=== PATIENT | male | born 1995 | race Two or more races ===

== ENCOUNTER 2021-11-25 12:06 | Emergency (ER) | payer MEDICAID, SELFPAY ==
[2021-11-25 12:18] VITALS: BP 115/65; PULSE 92; RESP 19; TEMP 36.6; O2SAT 99; BMI 23.9
--- NOTE | 2021-11-25 14:01 | ED.HEATRA ---
HPI - Head Injury General Chief complaint: Head Injury Stated complaint: head injury - work related Time Seen by Provider: 11/25/21 13:06 History of Present Illness HPI Narrative: Patient was at work on his job and slipped on the floor hitting the side of his head against a chair He had no loss of consciousness but did feel dizzy and had a headache and comes here for evaluation, he feels much better now he no longer has headache and does not feel dizzy Review of Systems Review of Systems: Positive for head injury with resolved headache and dizziness Now there is no headache no dizziness no fatigue no fainting no feeling faint no vision changes no nausea or vomiting no numbness weakness or tingling no neck pain no difficulty breathing no difficulty walking no laceration Yes all other systems are reviewed and are negative PMFSH Past Medical History Source: nursing notes reviewed Social History Social History Advance Directives: No Advance Directives Information Provided: No Physical Exam Vital Signs: Vital Signs: Last Vital Signs Temp 98 F 11/25/21 12:18 Pulse 92 11/25/21 12:18 Resp 19 11/25/21 12:18 BP 115/65 11/25/21 12:18 Pulse Ox 99 11/25/21 12:18 BMI result Body Mass Index 23.9 General appearance comfortable relax no acute distress Head is normocephalic atraumatic, no raccoon eyes no Walters signs no hematoma or deformity in palpation of the scalp The ears no hemotympanum Pupils equal round reactive to light extraocular motions are intact Facial bones are nontender Neck is supple nontender Respiratory no distress Extremities full range of motion x4 Neuro exam there are no focal motor or sensory deficits, gait and balance are normal, or interaction both expression and comprehension are normal, motor is 5/5 x4, cranial nerves 2-12 intact as tested, cerebellar exam is normal Course Course Course Narrative: Patient who hit his head at work no loss of consciousness had a brief headache and felt mildly dazed for a short amount of time is now completely asymptomatic no blood thinners, completely normal exam and is discharged Discharge Plan Discharge Clinical Impression: Concussion with loss of consciousness, Contusion of head Patient Disposition: Home, Self-Care Additional Instructions: You hit your head on a chair but there is no sign of any dangerous brain bleed or broken skull As her headache and dizziness are gone it may be all better, but sometimes if symptoms recur it may be signs of concussion which she would follow with the [facility] Return to the ER any time any worse condition or any concerns Referrals: [facility] [Provider Group] - 2 days (Patient hit his head in fall at work and felt dizzy and had headache When seen in ER he felt better but is given the referral in case concussion symptoms surface) Stand Alone Forms: Work/School Release Interventions: ED Discharge Assessment Last Done: 11/25/21 14:31 Discharge Date/Time: 11/25/21 14:32
== END 2021-11-25 14:32 | disposition home or self-care (01) ==
LOC: HO.ED 14:17
PROVIDERS: Emergency Provider Emergency Medicine
DX: S06.0X0A Concussion without loss of consciousness, initial encounter (principal); S00.03XA Contusion of scalp, initial encounter; W01.190A Fall on same level from slipping, tripping and stumbling with subsequent striking against furniture, initial encounter; Y93.89 Activity, other specified; Y92.59 Other trade areas as the place of occurrence of the external cause; Y99.0 Civilian activity done for income or pay
CPT/HCPCS: 99282; 99283

== ENCOUNTER 2021-12-04 22:40 | Emergency (ER) | payer MEDICAID, SELFPAY ==
[2021-12-04 22:44] VITALS: BP 158/66; PULSE 91; RESP 20; TEMP 36.2; O2SAT 99; BMI 24.3
--- NOTE | 2021-12-04 23:00 | ED.MALEGU ---
HPI - Male Genitourinary General Chief complaint: Urogenital-Male Stated complaint: STD? Time Seen by Provider: 12/04/21 22:49 Source: patient Mode of arrival: ambulatory Limitations: no limitations History of Present Illness HPI Narrative: 26-year-old male healthy here with reports that his girlfriend is positive for chlamydia and he would like treatment. He is asymptomatic Related Data Allergies Allergy/AdvReac Type Severity Reaction Status Date / Time No Known Allergies Allergy Verified 12/04/21 22:44 Review of Systems Review of Systems: Yes all other systems are reviewed and are negative Constitutional: Constitutional: Reports no additional constitutional complaints, Denies body ache(s), Denies chills, Denies fever(s), Denies headache(s) and Denies weakness Eyes: Eyes: Reports no additional eye complaints and Denies change in vision ENT: Reports system reviewed and no additional complaints, except as documented, Denies dizziness, Denies headache(s), Denies nasal congestion, Denies nasal discharge and Denies neck pain Cardiovascular: Cardiovascular: Reports no additional cardiovascular complaints, Denies chest pain, Denies leg edema and Denies dyspnea Respiratory: Respiratory: Reports no additional respiratory complaints, Denies cough and Denies dyspnea Gastrointestinal: Gastrointestinal: Reports no additional gastrointestinal complaints, Denies abdominal pain, Denies diarrhea, Denies nausea and Denies vomiting Genitourinary: Genitourinary: Denies penile discharge, Denies testicular pain, Denies urinary hesitancy, Denies urinary incontinence and Denies urinary urgency Musculoskeletal: Musculoskeletal: Reports no additional musculoskeletal complaints, Denies back pain, Denies arthralgias, Denies joint swelling, Denies neck pain, Denies numbness and Denies tingling Integumentary/Breasts: Skin/Breast: Reports system reviewed and no additional complaints, except as docu and Denies rash Neurologic: Reports system reviewed and no additional complaints, except as documented, Denies Abnormal speech present, Denies dizziness, Denies headache(s), Denies numbness, Denies tingling and Denies weakness PMFSH Past Medical History Attestation statement: The following information was validated with the patient. Source: old records reviewed and nursing notes reviewed Social History Social History Advance Directives: No Physical Exam Vital Signs: Vital Signs: Last Vital Signs Temp 97.1 F 12/04/21 22:44 Pulse 91 12/04/21 22:44 Resp 20 12/04/21 22:44 BP 158/66 H 12/04/21 22:44 Pulse Ox 99 12/04/21 22:44 BMI result Body Mass Index 24.3 Const: General: cooperative, healthy appearing, comfortable and no acute distress Orientation/consciousness: patient oriented x3 Limitations: no limitations HENMT: Head: Yes normal to inspection Ears: hearing grossly normal bilaterally General nose exam: Normal external nose present Face and sinus: Yes normal facial exam Mouth: Normal oral and palatal mucosa present Throat: Yes posterior oropharynx normal Eyes: General: appearance normal, both eyes and all related structures Pupils: Equal, round and reactive pupils present Neck: Neck: Yes normal visual inspection Chest: Chest palpation & inspection: normal inspection of the chest Resp: Effort & Inspection: normal respiratory effort Auscultation: clear to auscultation bilaterally Cardio: Rate: regular rate Rhythm: regular rhythm Peripheral pulses: Peripheral pulses 2+ throughout GI: Inspection: Yes normal to inspection Palpation (GI): Soft to palpation and nontender Auscultation: normal bowel sounds : Other: deferred gu exam Back/Spine/Pelvis: Thoracic/Lumbar Spine: thoracic and lumbar spine normal to inspection Skin: General skin exam: no rashes or lesions noted Neuro: General: patient oriented x3, no focal motor deficits and normal sensation to monofilament Cranial nerves: Yes Equal, round and reactive pupils present Cognition (Neuro): normal cognition Speech: No Abnormal speech present Gait exam (Neuro): Normal gait present Motor exam (neuro): 5/5 motor strength present throughout Extrem: General: Yes normal to inspection Course Course Course Narrative: 26-year-old male here seeking testing for STD after finding out that his girlfriend is positive for chlamydia. He is asymptomatic. Will send CTNG testing. Patient treated with ceftriaxone 500 mg IM, will send home with course of doxycycline. Reviewed worrisome signs and symptoms of when to return to the emergency department. Comfortable discharge home MDM - Male Genitourinary Medical Records Attestation: I reviewed the patient's medical records. Lab Data Attestation: I reviewed the patient's lab results. Discharge Plan Discharge Clinical Impression: Concern about STD in male without diagnosis Patient Disposition: Home, Self-Care Instructions: Sexually Transmitted Diseases (ED), Safe Sex Practices (ED) Additional Instructions: You were tested for gonorrhea and chlamydia. We will not have your lab results back for several days. Your treated prophylactically for both STD Use condoms If you are positive please re-test in 1 week at [facility] Referrals: Physician,None [Primary Care Provider] - 1 week (as needed) Interventions: ED Discharge Assessment Last Done: 12/04/21 23:37 Discharge Date/Time: 12/04/21 23:40
[2021-12-04] MEDS: cefTRIAXone sodium 500 MG, Lidocaine HCl 1 % MPF 1 ML IM (23:26)
[2021-12-05 01:29] LABS: CT PCR NOT DETECTED (Not Detect.); NG PCR NOT DETECTED (Not Detect.)
== END 2021-12-04 23:40 | disposition home or self-care (01) ==
PROVIDERS: Emergency Provider Student in an Organized Health Care Education/Training Program
DX: Z20.2 Contact with and (suspected) exposure to infections with a predominantly sexual mode of transmission (principal)
CPT/HCPCS: 87491; 87591; 96372; 99284; J0696

== ENCOUNTER 2022-01-09 10:21 | Emergency (ER) | payer MEDICAID, SELFPAY ==
[2022-01-09 10:23] VITALS: BP 138/41; PULSE 80; RESP 19; TEMP 36.6; O2SAT 99; BMI 24.3
--- NOTE | 2022-01-09 10:36 | ED.ABDPAIN ---
HPI - Abdominal Pain General Chief Complaint: Abdominal Pain Stated Complaint: Abd pain Time Seen by Provider: 01/09/22 10:35 Source: patient Mode of arrival: ambulatory Limitations: no limitations History of Present Illness HPI narrative: Patient is a 26 year old male presenting to the emergency department today with abdominal pain. Patient states that he has left lower quadrant abdominal pain. Patient states that the pain comes and goes and he has had it for months. Patient denies any dizziness, lightheadedness, nausea, vomiting, fever, chills, blurry vision, double vision, loss of vision, chest pain, difficulty breathing, shortness of breath, back pain, night sweats, pain with urination, increased urinary frequency, increased urinary urgency, blood in his urine or stool, syncope or a near syncopal episode, recent trauma or falls, bowel incontinence, bladder incontinence, bowel retention, bladder retention, or any other complaints at this time. Patient states that he often lifts very heavy weights. MD elicited complaint: abdominal pain Pertinent past history: none Onset (ago): month(s) Pain Consistency: intermittent Location: LLQ Severity: mild Pain scale (0-10): 3 Quality: dull Radiation: none Migration to: no migration Exacerbating factors: nothing Relieving factors: nothing Associated symptoms: denies other symptoms Related Data Allergies Allergy/AdvReac Type Severity Reaction Status Date / Time No Known Allergies Allergy Verified 12/04/21 22:44 Review of Systems Constitutional: Reports no additional constitutional complaints, Denies chills, Denies fever(s) and Denies night sweats Eyes: Reports no additional eye complaints, Denies blurry vision, Denies change in vision, Denies diplopia, Denies eye discharge, Denies loss of vision and Denies eye pain Denies dizziness Cardiovascular: Reports no additional cardiovascular complaints, Denies chest pain, Denies lightheadedness, Denies Loss of Consciousness and Denies dyspnea Respiratory: Reports no additional respiratory complaints and Denies dyspnea Gastrointestinal: Reports no additional gastrointestinal complaints, Reports abdominal pain, Denies melena, Denies hematochezia, Denies change in bowel habits and Denies change in stool character Genitourinary: Reports no additional male genitourinary complaints, Denies hematuria, Denies oliguria, Denies difficulty urinating, Denies dysuria, Denies urinary frequency, Denies urinary hesitancy, Denies urinary incontinence and Denies urinary urgency Musculoskeletal: Reports no additional musculoskeletal complaints, Denies numbness and Denies tingling Denies dizziness, Denies loss of vision, Denies numbness and Denies tingling Psychiatric: Reports no additional psychiatric complaints Endocrine: Reports no additional endocrine complaints Hematologic/Lymphatic: Reports no additional hematologic/lymphatic complaints Allergic/Immunologic: Reports no additional allergic/immunologic complaints PMFSH Past Medical History Attestation statement: The following information was validated with the patient. Source: old records reviewed Social History Social History Alcohol intake: current Alcohol intake frequency: a few times a month Patient Tobacco Use Status: Current everyday Tobacco user Use of substances other than those prescribed or required for medical reasons: No Advance Directives: No Advance Directives Information Provided: No Physical Exam ED Vital Signs: Vital Signs - 24 hr 01/09/22 10:23 01/09/22 11:05 Temperature 98 F 98.4 F Pulse Rate 80 72 Respiratory Rate 19 15 Blood Pressure 138/41 L 106/66 Pulse Oximetry 99 99 BMI result Body Mass Index 24.3 Const General: cooperative, no acute distress, alert and awake Nutritional Appearance: well nourished Orientation/consciousness: patient oriented x3 Limitations: no limitations HENMT Head: Yes normal to inspection and Yes atraumatic Ears: hearing grossly normal bilaterally and external ears normal General nose exam: Normal external nose present, no nasal discharge noted and no epistaxis Face and sinus: Yes normal facial exam, No abrasion and No laceration Mouth: Normal oral and palatal mucosa present, no drooling and no muffled voice Eyes General: appearance normal, both eyes and all related structures Periorbital: periorbital findings normal Eyelids: Yes eyelids normal Conjunctivae: conjunctivae normal Pupils: Equal, round and reactive pupils present EOM: EOMs intact bilaterally Neck Neck: Yes normal visual inspection, Yes full ROM and Yes no lymphadenopathy Chest Chest palpation & inspection: normal inspection of the chest Resp Effort & Inspection: normal respiratory effort and able to speak in complete sentences Auscultation: clear to auscultation bilaterally Cardio Rate: regular rate Rhythm: regular rhythm GI Inspection: Yes normal to inspection Palpation (GI): Soft to palpation, not firm, nontender, no guarding and not rigid Neuro General: patient oriented x3 and moves all extremities Cranial nerves: Yes Equal, round and reactive pupils present Cognition (Neuro): normal cognition Motor exam (neuro): 5/5 motor strength present throughout Sensory Exam: Normal double simultaneous stimulation for sensation Coordination: [id number] test normal Extrem General: Yes normal to inspection, Yes full ROM and Yes capillary refill normal Psych Appearance: grossly normal Mental Status: mental status grossly normal Affect: normal affect Attitude: cooperative Thought process: Normal thought process present Thought content: Normal thought content present Insight: Good insight present (Psych) MDM - Abdominal Pain MDM Narrative Medical decision making narrative: Patient is a 26 year old male presenting to the emergency department today with abdominal pain. Patient's physical exam was unremarkable. Patient's blood work was unremarkable. Patient's urine showed no acute process. I explained my physical exam findings as well as all test results to the patient. I answered all questions asked by the patient. I stressed the importance of the patient taking his medication as prescribed. I stressed the importance of the patient following up with his primary care provider. I stressed the importance of the patient returning to the emergency department immediately if his symptoms were to worsen or if he were to develop any dizziness, shortness of breath, difficulty breathing, chest pain, blurry vision, loss of vision, nausea, vomiting, abdominal pain, fever, chills, back pain, or any other complaints. Patient verbalized agreement and understanding with this treatment plan and discharge. Differential Diagnosis Differential diagnosis: Likely abdominal pain Medical Records Attestation: I reviewed the patient's medical records. Lab Data Attestation: I reviewed the patient's lab results. Result diagrams: 01/09/22 11:15 01/09/22 11:15 Labs: Lab Results 01/09/22 01/09/22 01/09/22 Range/Units 11:15 11:15 11:16 WBC 5.7 (4.8-10.8) X10*3/uL RBC 4.89 (4.60-5.80) X10*6/uL Hgb 15.5 (14.0-18.0) g/dl Hct 45.5 (42.0-52.0) % MCV 93.0 (80.0-98.0) fL MCH 31.7 (27.0-33.0) pg MCHC 34.1 (31.0-36.0) g/dl RDW 12.7 (11.0-16.0) % Plt Count 181 (160-400) X10*3/uL MPV 11.6 (9.4-12.4) fL Immature Gran % (Auto) 0.2 (0.0-0.4) % Neut % (Auto) 56.8 (45-73) % Lymph % (Auto) 29.5 (20-40) % [place] % (Auto) 12.6 H (2-11) % Eos % (Auto) 0.5 (0-4) % Baso % (Auto) 0.4 (0-2) % Lymph # (Auto) 1.7 (1.2-4.9) X10*3/uL [place] # (Auto) 0.7 (0.1-1.2) X10*3/uL Eos # (Auto) 0.0 (0.0-0.4) X10*3/uL Baso # (Auto) 0.0 (0.0-0.2) X10*3/uL Abs Immat Gran (auto) 0.01 (0.00-0.03) X10*3/uL Absolute Neuts (auto) 3.2 (2.0-8.3) x10*3/uL Absolute Nucleated RBC 0.000 (0.0-0.012) X10*3/uL Nucleated RBC % (auto) 0.0 (0.0-0.2) /100WBC Sodium 140 (135-145) mmol/L Potassium 4.3 (3.3-5.1) mmol/L Chloride 104 (96-108) mmol/L Carbon Dioxide 27 (22-29) mmol/L Anion Gap 13 (12-20) BUN 19 H (9-16) mg/dL Creatinine 1.27 (0.5-1.4) mg/dL Estim Creat Clear Calc 88.9 Estimated GFR > 60 Fasting Glucose 89 (60-99) mg/dL Calcium 9.8 (8.4-10.2) mg/dL Total Bilirubin 1.1 H (0.0-1.0) mg/dL AST 53 H (5-37) U/L ALT 38 (0-40) U/L Alkaline Phosphatase 54 (39-117) U/L Total Protein 7.5 (6.5-8.0) g/dL Albumin 4.6 (3.5-5.0) g/dL Lipase 34 (8-78) U/L Urine Color YELLOW Urine Appearance CLEAR Urine pH 5.5 (5.0-8.0) Ur Specific [place] >= 1.030 H (1.005-1.025) Urine Protein TRACE (NEG-TRACE) MG/DL Urine Glucose (UA) NEG (NEG) MG/DL Urine Ketones NEG (NEG) MG/DL Urine Blood NEG (NEG) Urine Nitrite NEG (NEG) Ur Leukocyte Esterase NEG (NEG) Discharge Plan Discharge Clinical Impression: Abdominal pain Patient Disposition: Home, Self-Care Instructions: Abdominal Pain (ED) Additional Instructions: Follow up with your primary care provider. Return to the emergency department immediately if your symptoms worsen or if you develop any dizziness, shortness of breath, difficulty breathing, chest pain, blurry vision, loss of vision, nausea, vomiting, abdominal pain, fever, chills, back pain, or any other complaints. Referrals: Physician,None [Primary Care Provider] - 2 days (Follow up with your PCP. ) Stand Alone Forms: Work/School Release Interventions: ED Discharge Assessment Last Done: 01/09/22 12:17 Discharge Date/Time: 01/09/22 12:20 Print Language: Syriac
[2022-01-09 11:05] VITALS: BP 106/66; PULSE 72; RESP 15; TEMP 36.9; O2SAT 99
[2022-01-09 11:21] LABS: MANUAL DIFF FLAG NO
[2022-01-09 11:26] LABS: Appearance Urine CLEAR; Color Urine YELLOW; Glucose Urine UA NEG (NEG); Leukocyte Esterase Urine NEG (NEG); Nitrite Urine NEG (NEG); PH 5.5 (5.0-8.0); Specific Gravity - Urine >= 1.030 (1.005-1.025); Urine Blood NEG (NEG); Urine Ketones NEG (NEG); Urine Protein TRACE MG/DL (NEG-TRACE)
[2022-01-09 11:27] LABS: Basophils Percent Auto 0.4 % (0-2); Eosinophils Percent Auto 0.5 % (0-4); Hematocrit 45.5 % (42.0-52.0); Hemoglobin 15.5 g/dl (14.0-18.0); Imm Gran Abs Auto 0.01 X10*3/uL (0.00-0.03); Imm Gran Pct Auto 0.2 % (0.0-0.4); Lymphocytes Absolute Auto 1.7 X10*3/uL (1.2-4.9); Lymphocytes Percent Auto 29.5 % (20-40); Mean Corpuscular HGB Conc 34.1 g/dl (31.0-36.0); Mean Corpuscular Hemoglobin 31.7 pg (27.0-33.0); Mean Platelet Volume 11.6 fL (9.4-12.4); Monocytes Absolute Auto 0.7 X10*3/uL (0.1-1.2); Monocytes Percent Auto 12.6 % (2-11); Neutrophils Absolute Auto 3.2 x10*3/uL (2.0-8.3); Neutrophils Percent Auto 56.8 % (45-73); Platelet Count 181 X10*3/uL (160-400); Red Blood Count 4.89 X10*6/uL (4.60-5.80); Red Cell Distribution Width 12.7 % (11.0-16.0); White Blood Count 5.7 X10*3/uL (4.8-10.8)
[2022-01-09 11:46] LABS: Alanine Aminotransferase 38 U/L (0-40); Albumin Level 4.6 g/dL (3.5-5.0); Alkaline Phosphatase 54 U/L (39-117); Anion Gap 13 (12-20); Aspartate Amino Transferase 53 U/L (5-37); Bilirubin Total 1.1 mg/dL (0.0-1.0); Blood Urea Nitrogen 19 mg/dL (9-16); Calcium 9.8 mg/dL (8.4-10.2); Carbon Dioxide 27 mmol/L (22-29); Chloride 104 mmol/L (96-108); Creatinine Clr Calc Pharmacy 88.9; Estimated Glomerular Filt Rate > 60; Glucose Fasting 89 mg/dL (60-99); Lipase 34 U/L (8-78); Potassium 4.3 mmol/L (3.3-5.1); Sodium 140 mmol/L (135-145); Total Protein 7.5 g/dL (6.5-8.0)
== END 2022-01-09 12:20 | disposition home or self-care (01) ==
PROVIDERS: Physician Assistant Medical; Emergency Provider Emergency Medicine
DX: R10.32 Left lower quadrant pain (principal); F17.200 Nicotine dependence, unspecified, uncomplicated
CPT/HCPCS: 36415; 80053; 81003; 83690; 85025; 99283; 99284

== ENCOUNTER 2022-02-03 09:05 | Emergency (ER) | payer MEDICAID, SELFPAY ==
--- NOTE | ~2022-02-03 | XR_ITS ---
EXAMINATION: XR CHEST CLINICAL INFORMATION: Chest pain. COMPARISON: None TECHNIQUE: 2 views of the chest were obtained. FINDINGS: No significant abnormality is noted involving the heart, lungs, mediastinum, bony thorax or soft tissues. XR/XR chest 2V IMPRESSION: No acute cardiopulmonary process.
--- NOTE | 2022-02-03 09:09 | ED.GENADULT ---
HPI - General Adult General Chief complaint: Chest Pain <OLGA Porter Last Filed: 02/03/22 11:00> Stated complaint: chest pain <OLGA Porter Last Filed: 02/03/22 11:00> Time Seen by Provider: 02/03/22 09:09 <OLGA Porter Last Filed: 02/03/22 11:00> Source: patient <OLGA Porter Last Filed: 02/03/22 11:00> Mode of arrival: ambulatory <OLGA Porter Last Filed: 02/03/22 11:00> Limitations: no limitations <OLGA Porter Last Filed: 02/03/22 11:00> History of Present Illness HPI narrative: Patient is a 26 year old male presenting to the emergency department today with intermittent chest pain. Patient states that his chest sometimes hurts when he takes a deep breath. Patient states that the pain does not radiate and stays in the center of his chest. Patient states that he has had this pain for 5 months. Patient denies any dizziness, lightheadedness, abdominal pain, nausea, vomiting, fever, chills, blurry vision, double vision, loss of vision, difficulty breathing, shortness of breath, back pain, night sweats, pain with urination, increased urinary frequency, increased urinary urgency, blood in his urine or stool, syncope or a near syncopal episode, recent trauma or falls, bowel incontinence, bladder incontinence, bowel retention, bladder retention, or any other complaints at this time. <OLGA Porter Last Filed: 02/03/22 11:00> Onset (ago): month(s) (5) <OLGA Porter - Last Filed: 02/03/22 11:00> Location: chest <OLGA Porter Last Filed: 02/03/22 11:00> Radiation: non-radiation <OLGA Porter Last Filed: 02/03/22 11:00> Severity: mild <OLGA Porter Last Filed: 02/03/22 11:00> Severity scale (1-10): 3 <OLGA Porter Last Filed: 02/03/22 11:00> Quality: dull <OLGA Porter Last Filed: 02/03/22 11:00> Pain Consistency: intermittent <OLGA Porter - Last Filed: 02/03/22 11:00> Relieving factors: none <OLGA Porter - Last Filed: 02/03/22 11:00> Exacerbating factors: other (deep breath) <OLGA Porter - Last Filed: 02/03/22 11:00> Associated symptoms: denies other symptoms <OLGA Porter - Last Filed: 02/03/22 11:00> Treatments prior to arrival: none <OLGA Porter - Last Filed: 02/03/22 11:00> Related Data Allergies/adverse reactions: Allergies Allergy/AdvReac Type Severity Reaction Status Date / Time No Known Allergies Allergy Verified 12/04/21 22:44 <OLGA Porter - Last Filed: 02/03/22 11:00> Review of Systems Constitutional: Constitutional: Reports no additional constitutional complaints, Denies chills, Denies fever(s) and Denies night sweats <OLGA Porter - Last Filed: 02/03/22 11:00> Eyes: Eyes: Reports no additional eye complaints, Denies blurry vision, Denies change in vision, Denies diplopia, Denies eye discharge, Denies loss of vision and Denies eye pain <OLGA Porter - Last Filed: 02/03/22 11:00> ENT: Denies dizziness <OLGA Porter - Last Filed: 02/03/22 11:00> Cardiovascular: Cardiovascular: Reports no additional cardiovascular complaints, Reports chest pain, Denies lightheadedness, Denies Loss of Consciousness and Denies dyspnea <OLGA Porter - Last Filed: 02/03/22 11:00> Respiratory: Respiratory: Reports no additional respiratory complaints and Denies dyspnea <OLGA Porter - Last Filed: 02/03/22 11:00> Gastrointestinal: Gastrointestinal: Reports no additional gastrointestinal complaints, Denies abdominal pain, Denies melena, Denies hematochezia, Denies change in bowel habits and Denies change in stool character <OLGA Porter - Last Filed: 02/03/22 11:00> Genitourinary: Genitourinary: Reports no additional male genitourinary complaints, Denies hematuria, Denies oliguria, Denies difficulty urinating, Denies dysuria, Denies urinary frequency, Denies urinary hesitancy, Denies urinary incontinence and Denies urinary urgency <OLGA Porter - Last Filed: 02/03/22 11:00> Musculoskeletal: Musculoskeletal: Reports no additional musculoskeletal complaints, Denies numbness and Denies tingling <OLGA Porter - Last Filed: 02/03/22 11:00> Neurologic: Denies dizziness, Denies loss of vision, Denies numbness and Denies tingling <OLGA Porter - Last Filed: 02/03/22 11:00> Psychiatric: Psychiatric: Reports no additional psychiatric complaints <OLGA Porter - Last Filed: 02/03/22 11:00> Endocrine: Endocrine: Reports no additional endocrine complaints <OLGA Porter - Last Filed: 02/03/22 11:00> Hematologic/Lymphatic: Hematologic/Lymphatic: Reports no additional hematologic/lymphatic complaints <OLGA Porter - Last Filed: 02/03/22 11:00> Allergic/Immunologic: Allergic/Immunologic: Reports no additional allergic/immunologic complaints <OLGA Porter - Last Filed: 02/03/22 11:00> [facility] Past Medical History Attestation statement: The following information was validated with the patient. <OLGA Porter - Last Filed: 02/03/22 11:00> Source: old records reviewed <OLGA Porter - Last Filed: 02/03/22 11:00> Social History Social History: Social History Alcohol intake: current Alcohol intake frequency: a few times a month Patient Tobacco Use Status: Current everyday Tobacco user Advance Directives: No Advance Directives Information Provided: No <OLGA Porter - Last Filed: 02/03/22 11:00> Physical Exam ED Vital Signs: Vital Signs - 24 hr 02/03/22 09:15 02/03/22 10:51 Temperature 97.9 F Pulse Rate 76 64 Respiratory Rate 18 18 Blood Pressure 129/57 L 126/67 Pulse Oximetry 99 99 BMI result Body Mass Index 24.3 <OLGA Porter - Last Filed: 02/03/22 11:00> Const General: cooperative, no acute distress, alert and awake <OLGA Porter - Last Filed: 02/03/22 11:00> Nutritional Appearance: well nourished <OLGA Porter - Last Filed: 02/03/22 11:00> Orientation/consciousness: patient oriented x3 <OLGA Porter - Last Filed: 02/03/22 11:00> Limitations: no limitations <OLGA Porter - Last Filed: 02/03/22 11:00> HENMT Head: Yes normal to inspection and Yes atraumatic <OLGA Porter - Last Filed: 02/03/22 11:00> Ears: hearing grossly normal bilaterally and external ears normal <OLGA Porter - Last Filed: 02/03/22 11:00> General nose exam: Normal external nose present, no nasal discharge noted and no epistaxis <OLGA Porter - Last Filed: 02/03/22 11:00> Face and sinus: Yes normal facial exam, No abrasion and No laceration <OLGA Porter - Last Filed: 02/03/22 11:00> Mouth: Normal oral and palatal mucosa present, no drooling and no muffled voice <OLGA Porter - Last Filed: 02/03/22 11:00> Eyes General: appearance normal, both eyes and all related structures <OLGA Porter - Last Filed: 02/03/22 11:00> Periorbital: periorbital findings normal <OLGA Porter - Last Filed: 02/03/22 11:00> Eyelids: Yes eyelids normal <OLGA Porter - Last Filed: 02/03/22 11:00> Conjunctivae: conjunctivae normal <OLGA Porter - Last Filed: 02/03/22 11:00> Pupils: Equal, round and reactive pupils present <OLGA Porter - Last Filed: 02/03/22 11:00> EOM: EOMs intact bilaterally <OLGA Porter - Last Filed: 02/03/22 11:00> Neck Neck: Yes normal visual inspection, Yes full ROM and Yes no lymphadenopathy <Miriam CokerOLGA orlando - Last Filed: 02/03/22 11:00> Chest Chest palpation & inspection: normal inspection of the chest <Miriam CokerOLGA orlando - Last Filed: 02/03/22 11:00> Resp Effort & Inspection: normal respiratory effort and able to speak in complete sentences <Miriam CokerOLGA orlando - Last Filed: 02/03/22 11:00> Auscultation: clear to auscultation bilaterally <Miriam CokerOLGA orlando - Last Filed: 02/03/22 11:00> Cardio Rate: regular rate <Miriam CokerOLGA orlando - Last Filed: 02/03/22 11:00> Rhythm: regular rhythm <Miriam CokerOLGA orlando - Last Filed: 02/03/22 11:00> GI Inspection: Yes normal to inspection <Miriamelena CokerOLGA orlando - Last Filed: 02/03/22 11:00> Neuro General: patient oriented x3 and moves all extremities <Miriam OLGA Flynn - Last Filed: 02/03/22 11:00> Cranial nerves: Yes Equal, round and reactive pupils present <Miriam CokerOLGA orlando - Last Filed: 02/03/22 11:00> Cognition (Neuro): normal cognition <Miriam CokerOLGA orlando - Last Filed: 02/03/22 11:00> Motor exam (neuro): 5/5 motor strength present throughout <Miriam CokerOLGA orlando - Last Filed: 02/03/22 11:00> Sensory Exam: Normal double simultaneous stimulation for sensation <Miriamelena CokerOLGA orlando - Last Filed: 02/03/22 11:00> Coordination: [id number] test normal <Miriamelena CokerOLGA orlando - Last Filed: 02/03/22 11:00> Extrem General: Yes normal to inspection, Yes full ROM and Yes capillary refill normal <Miriam CokerOLGA orlando - Last Filed: 02/03/22 11:00> Psych Appearance: grossly normal <Miriam OLGA Flynn - Last Filed: 02/03/22 11:00> Mental Status: mental status grossly normal <OLGA Porter - Last Filed: 02/03/22 11:00> Affect: normal affect <OLGA Porter - Last Filed: 02/03/22 11:00> Attitude: cooperative <OLGA Porter - Last Filed: 02/03/22 11:00> Thought process: Normal thought process present <OLGA Porter Last Filed: 02/03/22 11:00> Thought content: Normal thought content present <OLGA Porter Last Filed: 02/03/22 11:00> Insight: Good insight present (Psych) <OLGA Porter Last Filed: 02/03/22 11:00> Medical Decision Making MDM Narrative Medical decision making narrative: Patient is a 26 year old male presenting to the emergency department today with intermittent chest pain for 5 months. Patient's physical exam was unremarkable. Patient's blood work was unremarkable. Patient's EKG was unremarkable. Patient's chest x-ray showed no acute process. I explained my physical exam findings as well as all test results to the patient. I answered all questions asked by the patient. Patient did not experience any episodes of chest pain while in the department. I stressed the importance of the patient taking his medication as prescribed. I stressed the importance of the patient following up with his primary care provider. I stressed the importance of the patient returning to the emergency department immediately if his symptoms were to worsen or if he were to develop any dizziness, shortness of breath, difficulty breathing, chest pain, blurry vision, loss of vision, nausea, vomiting, abdominal pain, fever, chills, back pain, or any other complaints. Patient verbalized agreement and understanding with this treatment plan and discharge. <OLGA Porter - Last Filed: 02/03/22 11:00> Differential Diagnosis Differential Diagnosis: chest pain, costochondritis <OLGA Porter - Last Filed: 02/03/22 11:00> Medical Records Medical records reviewed: Yes I reviewed the patient's medical records. <OLGA Porter Last Filed: 02/03/22 11:00> Lab Data Lab results reviewed: Yes I reviewed the patient's lab results. <OLGA Porter Last Filed: 02/03/22 11:00> Result diagrams: : 02/03/22 09:52 02/03/22 09:52 <OLGA Porter - Last Filed: 02/03/22 11:00> Labs: Lab Results 02/03/22 02/03/22 02/03/22 Range/Units 09:52 09:52 09:52 WBC 5.9 (4.8-10.8) X10*3/uL RBC 4.88 (4.60-5.80) X10*6/uL Hgb 15.3 (14.0-18.0) g/dl Hct 45.4 (42.0-52.0) % MCV 93.0 (80.0-98.0) fL MCH 31.4 (27.0-33.0) pg MCHC 33.7 (31.0-36.0) g/dl RDW 12.6 (11.0-16.0) % Plt Count 166 (160-400) X10*3/uL MPV 11.1 (9.4-12.4) fL Immature Gran % (Auto) 0.2 (0.0-0.4) % Neut % (Auto) 49.8 (45-73) % Lymph % (Auto) 37.8 (20-40) % [place] % (Auto) 10.9 (2-11) % Eos % (Auto) 1.0 (0-4) % Baso % (Auto) 0.3 (0-2) % Lymph # (Auto) 2.2 (1.2-4.9) X10*3/uL [place] # (Auto) 0.6 (0.1-1.2) X10*3/uL Eos # (Auto) 0.1 (0.0-0.4) X10*3/uL Baso # (Auto) 0.0 (0.0-0.2) X10*3/uL Abs Immat Gran (auto) 0.01 (0.00-0.03) X10*3/uL Absolute Neuts (auto) 2.9 (2.0-8.3) x10*3/uL Absolute Nucleated RBC 0.000 (0.0-0.012) X10*3/uL Nucleated RBC % (auto) 0.0 (0.0-0.2) /100WBC Sodium 141 (135-145) mmol/L Potassium 4.2 (3.3-5.1) mmol/L Chloride 106 (96-108) mmol/L Carbon Dioxide 30 H (22-29) mmol/L Anion Gap 9 L (12-20) BUN 16 (9-16) mg/dL Creatinine 1.18 (0.5-1.4) mg/dL Estim Creat Clear Calc 95.6 Estimated GFR > 60 Random Glucose 99 (60-115) mg/dL Calcium 9.5 (8.4-10.2) mg/dL Magnesium 1.9 (1.6-2.6) mg/dL Total Bilirubin 0.4 (0.0-1.0) mg/dL AST 25 D (5-37) U/L ALT 24 (0-40) U/L Alkaline Phosphatase 46 (39-117) U/L Troponin I High Sens < 3.5 (<3.5-35.0) ng/L Total Protein 6.9 (6.5-8.0) g/dL Albumin 4.2 (3.5-5.0) g/dL <OLGA Porter - Last Filed: 02/03/22 11:00> Imaging Data Chest x-ray: Attestation: I personally reviewed and interpreted this imaging study as follows: <OLGA Porter - Last Filed: 02/03/22 11:00> My impression: No acute process. <LOGA Porter - Last Filed: 02/03/22 11:00> Radiologist's impression: EXAMINATION: XR CHEST CLINICAL INFORMATION: Chest pain. COMPARISON: None TECHNIQUE: 2 views of the chest were obtained. FINDINGS: No significant abnormality is noted involving the heart, lungs, mediastinum, bony thorax or soft tissues. XR/XR chest 2V IMPRESSION: No acute cardiopulmonary process. Dictated By: Sheldon Smith MD Signed By: Electronically signed by Sheldon Smith MD 02/03/22 0951 <OLGA Porter - Last Filed: 02/03/22 11:00> ECG Data Attestation: I personally reviewed and interpreted this ECG as follows: <OLGA Porter - Last Filed: 02/03/22 11:00> Prior ECG tracings: not available for review <OLGA Porter - Last Filed: 02/03/22 11:00> Interpretation: Vent. Rate: 060 BPM ? ? Atrial Rate: 060 BPM P-R Int: 148 ms? QRS Dur: 094 ms QT Int: 388 ms ? ? ? P-R-T Axes: 053 089 058 degrees QTc Int: 388 ms ? Normal sinus rhythm Normal ECG No previous ECGs available <OLGA Porter - Last Filed: 02/03/22 11:00> Discharge Plan Discharge Clinical Impression: Costochondritis <OLGA Porter - Last Filed: 02/03/22 11:00> Patient Disposition: Home, Self-Care <OLGA Porter - Last Filed: 02/03/22 11:00> Instructions: Costochondritis (ED) <OLGA Porter - Last Filed: 02/03/22 11:00> Additional Instructions: Call if you need to discuss finding and establishing with a primary care provider. Follow up with your primary care provider. Return to the emergency department immediately if your symptoms worsen or if you develop any dizziness, shortness of breath, difficulty breathing, chest pain, blurry vision, loss of vision, nausea, vomiting, abdominal pain, fever, chills, back pain, or any other complaints. <OLGA Porter - Last Filed: 02/03/22 11:00> Referrals: Physician,None [Primary Care Provider] - (Follow up with your PCP. ) <OLGA Porter - Last Filed: 02/03/22 11:00> Stand Alone Forms: Work/School Release <OLGA Porter - Last Filed: 02/03/22 11:00> Interventions: ED Discharge Assessment Last Done: 02/03/22 11:01 <OLGA Porter - Last Filed: 02/03/22 11:00> Discharge Date/Time: 02/03/22 11:02 <OLGA Porter - Last Filed: 02/03/22 11:00> Print Language: Thai <OGLA Porter - Last Filed: 02/03/22 11:00>
[2022-02-03 09:15] VITALS: BP 129/57; PULSE 76; RESP 18; TEMP 36.6; O2SAT 99; BMI 24.3
--- NOTE | 2022-02-03 09:17 | ECG_ITS ---
Test Reason : chest pain Blood Pressure : / mmHG Vent. Rate : 060 BPM Atrial Rate : 060 BPM P-R Int : 148 ms QRS Dur : 094 ms QT Int : 388 ms P-R-T Axes : 053 089 058 degrees QTc Int : 388 ms Normal sinus rhythm Normal ECG No previous ECGs available Referred By: Miriam Flynn Electronically Signed By:SID DENNEY MD
[2022-02-03 09:57] LABS: MANUAL DIFF FLAG NO
[2022-02-03 09:58] LABS: Basophils Percent Auto 0.3 % (0-2); Eosinophils Absolute Auto 0.1 X10*3/uL (0.0-0.4); Hematocrit 45.4 % (42.0-52.0); Hemoglobin 15.3 g/dl (14.0-18.0); Imm Gran Abs Auto 0.01 X10*3/uL (0.00-0.03); Imm Gran Pct Auto 0.2 % (0.0-0.4); Lymphocytes Absolute Auto 2.2 X10*3/uL (1.2-4.9); Lymphocytes Percent Auto 37.8 % (20-40); Mean Corpuscular HGB Conc 33.7 g/dl (31.0-36.0); Mean Corpuscular Hemoglobin 31.4 pg (27.0-33.0); Mean Platelet Volume 11.1 fL (9.4-12.4); Monocytes Absolute Auto 0.6 X10*3/uL (0.1-1.2); Monocytes Percent Auto 10.9 % (2-11); Neutrophils Absolute Auto 2.9 x10*3/uL (2.0-8.3); Neutrophils Percent Auto 49.8 % (45-73); Platelet Count 166 X10*3/uL (160-400); Red Blood Count 4.88 X10*6/uL (4.60-5.80); Red Cell Distribution Width 12.6 % (11.0-16.0); White Blood Count 5.9 X10*3/uL (4.8-10.8)
[2022-02-03 10:25] LABS: Alanine Aminotransferase 24 U/L (0-40); Albumin Level 4.2 g/dL (3.5-5.0); Alkaline Phosphatase 46 U/L (39-117); Anion Gap 9 (12-20); Aspartate Amino Transferase 25 U/L (5-37); Bilirubin Total 0.4 mg/dL (0.0-1.0); Blood Urea Nitrogen 16 mg/dL (9-16); Calcium 9.5 mg/dL (8.4-10.2); Carbon Dioxide 30 mmol/L (22-29); Chloride 106 mmol/L (96-108); Creatinine Clr Calc Pharmacy 95.6; Estimated Glomerular Filt Rate > 60; Glucose Random 99 mg/dL (60-115); Magnesium 1.9 mg/dL (1.6-2.6); Potassium 4.2 mmol/L (3.3-5.1); Sodium 141 mmol/L (135-145); Total Protein 6.9 g/dL (6.5-8.0)
[2022-02-03 10:27] LABS: Troponin-I High Sensitivity < 3.5 ng/L (<3.5-35.0)
[2022-02-03 10:51] VITALS: BP 126/67; PULSE 64; RESP 18; O2SAT 99
== END 2022-02-03 11:02 | disposition home or self-care (01) ==
PROVIDERS: Physician Assistant Medical; Emergency Provider Emergency Medicine
DX: M94.0 Chondrocostal junction syndrome [Tietze] (principal)
CPT/HCPCS: 36415; 71046; 80053; 83735; 84484; 85025; 93005; 99283; 99284

== ENCOUNTER 2022-07-17 02:34 | Emergency (ER) | payer MEDICAID, SELFPAY ==
--- NOTE | 2022-07-17 | ECG_ITS ---
Test Reason : CHEST PAIN Blood Pressure : / mmHG Vent. Rate : 084 BPM Atrial Rate : 084 BPM P-R Int : 146 ms QRS Dur : 094 ms QT Int : 334 ms P-R-T Axes : 075 091 053 degrees QTc Int : 394 ms Normal sinus rhythm Rightward axis Borderline ECG When compared with ECG of 03-FEB-2022 09:23, No significant change was found Referred By: Generic ED Physician Electronically Signed By:VEGA DAMON
[2022-07-17 03:03] VITALS: BP 126/63; PULSE 85; RESP 16; TEMP 36.9; O2SAT 96; BMI 24.3
[2022-07-17 04:14] VITALS: BP 113/77; PULSE 73; RESP 17; TEMP 37.2; O2SAT 99
[2022-07-17 04:24] LABS: MANUAL DIFF FLAG NO
[2022-07-17 04:25] LABS: Basophils Percent Auto 0.5 % (0-2); Eosinophils Absolute Auto 0.1 X10*3/uL (0.0-0.4); Eosinophils Percent Auto 0.9 % (0-4); Hematocrit 44.3 % (42.0-52.0); Hemoglobin 15.5 g/dl (14.0-18.0); Imm Gran Abs Auto 0.02 X10*3/uL (0.00-0.03); Imm Gran Pct Auto 0.3 % (0.0-0.4); Lymphocytes Percent Auto 34.6 % (20-40); Mean Corpuscular Hemoglobin 31.7 pg (27.0-33.0); Mean Corpuscular Volume 90.6 fL (80.0-98.0); Mean Platelet Volume 11.4 fL (9.4-12.4); Monocytes Absolute Auto 0.4 X10*3/uL (0.1-1.2); Monocytes Percent Auto 7.7 % (2-11); Neutrophils Absolute Auto 3.2 x10*3/uL (2.0-8.3); Platelet Count 169 X10*3/uL (160-400); Red Blood Count 4.89 X10*6/uL (4.60-5.80); Red Cell Distribution Width 12.2 % (11.0-16.0); White Blood Count 5.8 X10*3/uL (4.8-10.8)
[2022-07-17 04:44] LABS: Troponin-I High Sensitivity 13.8 ng/L (<3.5-35.0)
[2022-07-17 04:50] LABS: Alanine Aminotransferase 23 U/L (0-40); Albumin Level 4.6 g/dL (3.5-5.0); Alkaline Phosphatase 48 U/L (39-117); Anion Gap 16 (12-20); Aspartate Amino Transferase 26 U/L (5-37); Bilirubin Total 0.3 mg/dL (0.0-1.0); Blood Urea Nitrogen 14 mg/dL (9-16); Calcium 9.4 mg/dL (8.4-10.2); Carbon Dioxide 23 mmol/L (22-29); Chloride 105 mmol/L (96-108); Creatinine Clr Calc Pharmacy 105.5; Estimated Glomerular Filt Rate > 60; Glucose Random 85 mg/dL (60-115); Potassium 4.1 mmol/L (3.3-5.1); Sodium 140 mmol/L (135-145); Total Protein 7.6 g/dL (6.5-8.0)
[2022-07-17 05:11] VITALS: BP 113/77; PULSE 66; RESP 15; O2SAT 99
--- NOTE | 2022-07-17 06:03 | ED.CHESTPAIN ---
HPI - Chest Pain General Chief Complaint: Chest Pain Stated Complaint: Chest pain Time Seen by Provider: 07/17/22 05:41 Source: patient Mode of arrival: ambulatory History of Present Illness HPI narrative: 26-year-old male without significant past medical history and recently moved here from [place] states that for 5 years he has been having intermittent, every 5-6 months, sharp chest pain that occurs while he is working out and last approximately 3 minutes and then subsides. Patient denies that this has been associated with any dizziness, headache, nausea, shortness of breath. Related Data Allergies Allergy/AdvReac Type Severity Reaction Status Date / Time No Known Allergies Allergy Verified 12/04/21 22:44 Review of Systems Review of Systems: Pertinent positives and negatives as stated in HPI 10 point review of systems is otherwise negative. PMFSH Past Medical History Source: nursing notes reviewed Social History Social History Alcohol intake: current Alcohol intake frequency: a few times a month Patient Tobacco Use Status: Current everyday Tobacco user Advance Directives: No Advance Directives Information Provided: Yes Physical Exam Vital Signs: Vital Signs: Last Vital Signs Temp 98.9 F 07/17/22 04:14 Pulse 66 07/17/22 05:11 Resp 15 07/17/22 05:11 BP 113/77 07/17/22 05:11 Pulse Ox 99 07/17/22 05:11 O2 Del Method 07/17/22 05:11 BMI result Body Mass Index 24.3 VITAL SIGNS: Reviewed. GENERAL: Well developed, well nourished, in no acute distress. HEAD: Normocephalic/atraumatic EYES: PERRLA, EOMI EARS: Ext canals without abnormality OROPHARYNX: no oral lesions noted, posterior pharynx clear LUNGS: Normal breath sounds. No adventitious sounds or accessory muscle use. SpO2<99> CARDIOVASCULAR: Regular rate and rhythm without noted murmurs, no JVD or lower extremity edema. ABDOMEN: Soft, non-tender, non-distended with bowel sounds. MUSCULOSKELETAL: No tenderness, deformities, or effusions noted on gross inspection. EXTREMITIES: No cyanosis, clubbing or edema. SKIN: Inspection of the skin reveals no rashes NEUROLOGIC: Alert and oriented x 4. Strength and sensation to light touch were grossly intact x 4. Course Course Course Narrative: 26-year-old male with history and clinical presentation most consistent with costochondritis and lower clinical suspicion for cardiopulmonary etiology. Patient appears otherwise well and in good physical condition. On review of all investigations there are no acute findings other than detectable troponin levels which on serial investigation are flat without acute EKG changes. Patient is no longer having any chest pain at this time and he was strongly encouraged to follow-up with his primary care provider. He was provided with a list of primary care providers in the area. MDM - Chest Pain Lab Data Result diagrams: 07/17/22 04:20 07/17/22 04:20 Labs: Lab Results 07/17/22 07/17/22 07/17/22 Range/Units 04:20 04:20 04:20 WBC 5.8 (4.8-10.8) X10*3/uL RBC 4.89 (4.60-5.80) X10*6/uL Hgb 15.5 (14.0-18.0) g/dl Hct 44.3 (42.0-52.0) % MCV 90.6 (80.0-98.0) fL MCH 31.7 (27.0-33.0) pg MCHC 35.0 (31.0-36.0) g/dl RDW 12.2 (11.0-16.0) % Plt Count 169 (160-400) X10*3/uL MPV 11.4 (9.4-12.4) fL Immature Gran % (Auto) 0.3 (0.0-0.4) % Neut % (Auto) 56.0 (45-73) % Lymph % (Auto) 34.6 (20-40) % [place] % (Auto) 7.7 (2-11) % Eos % (Auto) 0.9 (0-4) % Baso % (Auto) 0.5 (0-2) % Lymph # (Auto) 2.0 (1.2-4.9) X10*3/uL [place] # (Auto) 0.4 (0.1-1.2) X10*3/uL Eos # (Auto) 0.1 (0.0-0.4) X10*3/uL Baso # (Auto) 0.0 (0.0-0.2) X10*3/uL Abs Immat Gran (auto) 0.02 (0.00-0.03) X10*3/uL Absolute Neuts (auto) 3.2 (2.0-8.3) x10*3/uL Absolute Nucleated RBC 0.000 (0.0-0.012) X10*3/uL Nucleated RBC % (auto) 0.0 (0.0-0.2) /100WBC Sodium 140 (135-145) mmol/L Potassium 4.1 (3.3-5.1) mmol/L Chloride 105 (96-108) mmol/L Carbon Dioxide 23 (22-29) mmol/L Anion Gap 16 (12-20) BUN 14 (9-16) mg/dL Creatinine 1.07 (0.5-1.4) mg/dL Estim Creat Clear Calc 105.5 Estimated GFR > 60 Random Glucose 85 (60-115) mg/dL Calcium 9.4 (8.4-10.2) mg/dL Total Bilirubin 0.3 (0.0-1.0) mg/dL AST 26 (5-37) U/L ALT 23 (0-40) U/L Alkaline Phosphatase 48 (39-117) U/L Troponin I High Sens 13.8 D (<3.5-35.0) ng/L Total Protein 7.6 (6.5-8.0) g/dL Albumin 4.6 (3.5-5.0) g/dL 07/17/22 Range/Units 05:48 WBC (4.8-10.8) X10*3/uL RBC (4.60-5.80) X10*6/uL Hgb (14.0-18.0) g/dl Hct (42.0-52.0) % MCV (80.0-98.0) fL MCH (27.0-33.0) pg MCHC (31.0-36.0) g/dl RDW (11.0-16.0) % Plt Count (160-400) X10*3/uL MPV (9.4-12.4) fL Immature Gran % (Auto) (0.0-0.4) % Neut % (Auto) (45-73) % Lymph % (Auto) (20-40) % [place] % (Auto) (2-11) % Eos % (Auto) (0-4) % Baso % (Auto) (0-2) % Lymph # (Auto) (1.2-4.9) X10*3/uL [place] # (Auto) (0.1-1.2) X10*3/uL Eos # (Auto) (0.0-0.4) X10*3/uL Baso # (Auto) (0.0-0.2) X10*3/uL Abs Immat Gran (auto) (0.00-0.03) X10*3/uL Absolute Neuts (auto) (2.0-8.3) x10*3/uL Absolute Nucleated RBC (0.0-0.012) X10*3/uL Nucleated RBC % (auto) (0.0-0.2) /100WBC Sodium (135-145) mmol/L Potassium (3.3-5.1) mmol/L Chloride (96-108) mmol/L Carbon Dioxide (22-29) mmol/L Anion Gap (12-20) BUN (9-16) mg/dL Creatinine (0.5-1.4) mg/dL Estim Creat Clear Calc Estimated GFR Random Glucose (60-115) mg/dL Calcium (8.4-10.2) mg/dL Total Bilirubin (0.0-1.0) mg/dL AST (5-37) U/L ALT (0-40) U/L Alkaline Phosphatase (39-117) U/L Troponin I High Sens 13.6 (<3.5-35.0) ng/L Total Protein (6.5-8.0) g/dL Albumin (3.5-5.0) g/dL ECG Data ECG #1: Attestation: I personally reviewed and interpreted this ECG as follows: Prior ECG tracings: available for review Interpretation: Normal sinus rhythm, HR-84, no STEMI, MO/QRS/QTC is within normal limits. Discharge Plan Discharge Clinical Impression: Atypical chest pain Patient Disposition: Home, Self-Care Instructions: Chest Pain (ED) Additional Instructions: 1. Llame a un proveedor de atenci?n primaria el lunes por la ma?anup para programar thony riya para thony reevaluaci?n y un estudio adicional de gibbons dolor de pecho. Regrese a la melissa de emergencias si los s?ntomas empeoran. Referrals: [place],[facility] [Primary Care Provider] - Print Language: Bahamian
[2022-07-17 06:12] LABS: Troponin-I High Sensitivity 13.6 ng/L (<3.5-35.0)
== END 2022-07-17 06:43 | disposition home or self-care (01) ==
PROVIDERS: Emergency Provider Student in an Organized Health Care Education/Training Program
DX: R07.89 Other chest pain (principal)
CPT/HCPCS: 36415; 80053; 84484; 85025; 93005; 99283; 99284

== ENCOUNTER 2025-07-16 19:37 | Inpatient (IN) | payer MEDICAID, SELFPAY ==
[2025-07-16 19:45] VITALS: BP 135/81; PULSE 82; RESP 19; TEMP 36.8; O2SAT 99
[2025-07-16 20:00] VITALS: BP 135/81; PULSE 82; RESP 19; TEMP 36.8; O2SAT 99; BMI 24.5
[2025-07-16 20:59] LABS: MANUAL DIFF FLAG NO
[2025-07-16 21:06] LABS: Hematocrit 43.0 % (42.0-52.0); Hemoglobin 15.5 g/dl (14.0-18.0); Imm Gran Abs Auto 0.00 X10*3/uL (0.00-0.03); Imm Gran Pct Auto 0.0 % (0.0-0.4); Lymphocytes Absolute Auto 0.9 X10*3/uL (1.2-4.9); Mean Corpuscular HGB Conc 36.0 g/dl (31.0-36.0); Mean Corpuscular Hemoglobin 32.0 pg (27.0-33.0); Mean Corpuscular Volume 88.8 fL (80.0-98.0); NRBC Abs Auto 0.000 X10*3/uL (0.0-0.012); NRBC Pct Auto 0.0 /100WBC (0.0-0.2); Platelet Count 133 X10*3/uL (160-400); Red Blood Count 4.84 X10*6/uL (4.60-5.80); White Blood Count 3.9 X10*3/uL (4.8-10.8)
[2025-07-16 21:13] LABS: Cannabinoid Screen Urine Not Detected (Not Detect)
[2025-07-16 21:15] LABS: Alanine Aminotransferase 17 U/L (0-40); Albumin Level 4.6 g/dL (3.5-5.0); Alkaline Phosphatase 52 U/L (39-117); Anion Gap 12 (12-20); Aspartate Amino Transferase 25 U/L (5-37); Blood Urea Nitrogen 18 mg/dL (9-16); Calcium 9.5 mg/dL (8.4-10.2); Carbon Dioxide 27 mmol/L (22-29); Chloride 106 mmol/L (96-108); Creatinine Clr Calc Pharmacy 89.4; Estimated Glomerular Filt Rate > 60; Potassium 4.1 mmol/L (3.3-5.1); Sodium 141 mmol/L (135-145); Total Protein 7.2 g/dL (6.5-8.0)
--- OUTSIDE RECORDS SUMMARY | 2025-07-16 21:39 | XMS_ITS | Encounter Summary ---
Author Organization [employer] [facility] Address [address] [facility] [address] [place] [address] Care Team Providers Care Plant Care Worker Name Role Phone Lydia Tello MD Primary Care Provider [phone]- [phone] Encounter Details Date Type Department Care Team (Late st Contact Info) Description 07/16/2025 Orders Only GENERIC EXTERNAL DATA DEPARTMENT Provider, Generic External Data Social History Tobacco Use Types Packs/Day Years Used Date Smoking Tobacco: Never Passive Smoke Exposure: Never Smokeless Tobacco: Never Sex and Gender Information Value Date Recorded Sex Assigned at Male 08/16/2022 10:39 AM EDT Legal Sex Male 10:39 AM EDT Gender Identity Choose not to disclose 10:39 AM EDT Sexual Orientation Choose not to disclose 2021 10:39 AM EDT documented as of this encounter Plan of Treatment Upcoming Encounters Date Type Department Care Team (Late st Contact Info) Description 08/09/2025 9:30 AM EDT Office Visit [facility] [address], [place] [phone] Lydia Tello MD [address], [place] [phone] documented as of this encounter Procedures Procedure Name Priority Date/Time Associated Diagnosis Comments ETHANOL Routine 07/16/2025 8:51 PM EDT DRUG MONITOR, PANEL 1, SCREEN, URINE Routine 07/16/2025 8:51 PM EDT CBC WITH AUTO DIFFERENTIAL Routine 07/16/2025 8:51 PM EDT COMPREHENSIVE METABOLIC PANEL Routine 07/16/2025 8:51 PM EDT documented in this encounter Results * Ethanol (07/16/2025 8:51 PM EDT) ETHANOL (MG/DL) IN SER/PLAS <10 mg/dL [facility] Comment:Serum/plasma ethanol results are to be used formedical/treatment purposes only. 07/16/2025 8:51 PM EDT 07/16/2025 8:57 PM EDT us Generic External Data Provider LAB BLOOD ORDERAB LES Final Result [facility] [address] [place], [place] [phone] * (ABNORMAL) Comprehensive Metabolic Panel (07/16/2025 8:51 PM EDT) Sodium 141 135 - 145 mmol/L [facility] Potassium 4.1 3.3 - 5.1 mmol/L [facility] Chloride 106 96 - 108 mmol/L [facility] Carbon Dioxide 27 22 - 29 mmol/L [facility] Anion Gap 12 12 - 20 [facility] Urea Nitrogen (BUN) 18(H) 9 - 16 mg/dL [facility] Creatinine, Serum 1.23 0.5 - 1.4 mg/dL [facility] Creatinine Clr Calc Pharmacy 89.4 [facility] Comment:eGFR (calculated fro m the MDRD study equation) and eCrCl(calculated from the Cockcroft-Gault equation) are based ondifferent parameters and may not yield comparable results.If eCrCl result is absurd, please check patient'sheight/weight. Estimated Glomerular Filt Rate >60 [facility] Comment:Chronic Kidney Disea se: Estimated GFR < 60 mL/min/[id number] Kidney Disease: Estimated GFR < 15 mL/min/1.73m2 Glucose 96 60 - 115 mg/dL [facility] Calcium 9.5 8.4 - 10.2 mg/dL [facility] Bilirubin, Total 0.9 0.0 - 1.0 mg/dL [facility] Aspartate Amino Transferase 25 5 - 37 U/L [facility] Alanine Aminotransferase 17 0 - 40 U/L [facility] Total Protein 7.2 6.5 - 8.0 g/dL [facility] Albumin Level 4.6 3.5 - 5.0 g/dL [facility] Alkaline Phosphatase 52 39 - 117 U/L [facility] 07/16/2025 8:51 PM EDT 07/16/2025 8:57 PM EDT us Generic External Data Provider LAB BLOOD ORDERAB LES Final Result [facility] [address] [place] [address] [phone] * Drug Monitoring, Panel 1, Screen, Urine (07/16/2025 8:51 PM EDT) Opiate Screen Urine Not Detected Not Detect [facility] Comment:Opiate cut-off is 30 0 ng/mL.Positive results are unconfirmed and should not be used fornon-medical purposes. Barbiturates, Urine Not Detected Not Detect [facility] Comment:Barbiturate cut-off is 200 ng/mL.Positive results are unconfirmed and should not be used fornon-medical purposes. Phencyclidine Screen Urine Not Detected Not Detect [facility] Comment:Phencyclidine cut-of f is 25 ng/mL.Positive results are unconfirmed and should not be used fornon-medical purposes. Amphetamine Screen Urine Not Detected Not Detect [facility] Comment:Amphetamine cut-off is 1000 ng/mL.Positive results are unconfirmed and should not be used fornon-medical purposes. Benzodiazepines Screen Urine Not Detected Not Detect [facility] Comment:Benzodiazepine cut-o ff is 200 ng/mL.Positive results are unconfirmed and should not be used fornon-medical purposes. Cocaine Screen Urine Not Detected Not Detect [facility] Comment:Cocaine cut-off is 3 00 ng/mL.Positive results are unconfirmed and should not be used fornon-medical purposes. Cannabinoid Screen Urine Not Detected Not Detect [facility] Comment:Cannabinoid cut-off is 50 ng/mL.Positive results are unconfirmed and should not be used fornon-medical purposes. Methadone Screen, Urine Not Detected Not Detect ng/mL [facility] Comment:Methadone cut-off is 300 ng/mL.Positive results are unconfirmed and should not be used fornon-medical purposes. FENTANYL URINE Not Detected Not Detect [facility] Comment:Fentanyl cut-off is 1 ng/mL.Positive results are unconfirmed and should not be used fornon-medical purposes. Oxycodone Urine Screen Not Detected Not Detect ng/mL [facility] Comment:Oxycodone cut-off is 100 ng/mL.Positive results are unconfirmed and should not be used fornon-medical purposes. Buprenorphine Screen Not Detected Not Detect ng/mL [facility] Comment:Buprenorphine cut-of f is 5 ng/mL.Positive results are unconfirmed and should not be used fornon-medical purposes. 07/16/2025 8:51 PM EDT 07/16/2025 8:57 PM EDT us Generic External Data Provider LAB URINE ORDERAB LES Final Result [facility] [address] [place] [phone] * (ABNORMAL) CBC auto differential (07/16/2025 8:51 PM EDT) White Blood Count 3.9(L) 4.8 - 10.8 X10*3/uL [facility] Red Blood Count 4.84 4.60 - 5.80 X10*6/uL [facility] Hemoglobin 15.5 14.0 - 18.0 g/dl [facility] Hematocrit 43.0 42.0 - 52.0 % [facility] Mean Corpuscular Volume 88.8 80.0 - 98.0 fL [facility] Mean Corpuscular Hemoglobin 32.0 27.0 - 33.0 pg [facility] Mean Corpuscular HGB Conc 36.0 31.0 - 36.0 g/dl [facility] Red Cell Distribution Width 12.1 11.0 - 16.0 % [facility] Platelet Count 133(L) 160 - 400 X10*3/uL [facility] Mean Platelet Volume 11.8 9.4 - 12.4 fL [facility] Neutrophils Percent Auto 65.3 45 - 73 % [facility] Imm Gran Pct Auto 0.0 0.0 - 0.4 % [facility] Lymphocytes Percent Auto 23.1 20 - 40 % [facility] Monocytes Percent Auto 10.8 2 - 11 % [facility] Eosinophils Percent Auto 0.5 0 - 4 % [facility] Basophils Percent Auto 0.3 0 - 2 % [facility] NRBC Pct Auto 0.0 0.0 - 0.2 /100WBC [facility] Neutrophils Absolute Auto 2.5 2.0 - 8.3 x10*3/uL [facility] Imm Gran Abs Auto 0.00 0.00 - 0.03 X10*3/uL [facility] Lymphocytes Absolute Auto 0.9(L) 1.2 - 4.9 X10*3/uL [facility] Monocytes Absolute Auto 0.4 0.1 - 1.2 X10*3/uL [facility] Eosinophils Absolute Auto 0.0 0.0 - 0.4 X10*3/uL [facility] Basophils Absolute Auto 0.0 0.0 - 0.2 X10*3/uL [facility] NRBC Abs Auto 0.000 0.0 - 0.012 X10*3/uL [facility] 07/16/2025 8:51 PM EDT 07/16/2025 8:57 PM EDT us Generic External Data Provider LAB BLOOD ORDERAB LES Final Result [facility] [address] [place] [phone] documented in this encounter Visit Diagnoses Not on filedocumented in this encounter Care Teams Plant Care Worker Relationship Specialty Start Date End Date Lydia Tello MD [address] [place] [address] PCP - General Family Medicine 07/04/25 documented as of this encounter
--- OUTSIDE RECORDS SUMMARY | 2025-07-16 21:39 | XMS_ITS | Clinical Summary ---
Author Organization [employer] Address [address] [facility] [facility] [address] [place] [address] Care Team Providers Care Fresh Food Manager Name Role Phone Lydia Tello MD Primary Care Provider [phone]- [phone] Allergies No known active allergies Medications ibuprofen 800 MG tabletIndicatio ns:Trapezius muscle strain, right, initial encounter Take 1 tablet (800 mg) by mouth every 8 (eight) hours if needed for moderate pain or fever. 30 tablet 5 08/03/20 25 Active Lidocaine 5 % creamIndication s:Trapezius muscle strain, right, initial encounter Apply topically bid 30 g 3 5 Active cyclobenzaprine (Flexeril) 10 MG tabletIndicatio ns:Trapezius muscle strain, right, initial encounter One tab po at bedtime prn pain of muscles, do not drive with medicaion 30 tablet 5 Active Active Problems Problem Noted Date Diagnosed Date Other specified health status 07/04/2025 Overview (07/04/2025): -next comprehensive annual evaluation due after -eye care facilitated by -dental home is -[facility]alo care proxy Encounters Date Type Department Care Team Description 07/16/2025 Orders Only GENERIC EXTERNAL DATA DEPARTMENT Provider, Generic External Data 07/04/2025 3:20 PM EDT Office Visit [facility] [address] [place] [address] Lydia Tello MD Trapezius muscle strain, right, initial encounter (Primary Dx); Routine screening for STI (sexually transmitted infection); Screening cholesterol level; Activity involving physical training 07/04/2025 Travel from Last 3 Months Family History Medical History Relation Name Comments Cancer Neg Hx Diabetes Neg Hx Heart disease Neg Hx Social History Tobacco Use Types Packs/Day Years Used Date Smoking Tobacco: Never Passive Smoke Exposure: Never Smokeless Tobacco: Never Tobacco Cessation:Counseling Given: Not Answered Sex and Gender Information Value Date Recorded Sex Assigned at Male 08/16/2022 10:39 AM EDT Legal Sex Male 10:39 AM EDT Gender Identity Choose not to disclose 10:39 AM EDT Sexual Orientation Choose not to disclose 2021 10:39 AM EDT Last Filed Vital Signs Vital Sign Reading Time Taken Comments Blood Pressure 132/61 07/04/2025 2:12 PM EDT Pulse 85 07/04/2025 2:12 PM EDT Temperature 36.7 C (98.1 F) 07/04/2025 2:12 PM EDT Respiratory Rate 16 07/04/2025 2:12 PM EDT Oxygen Saturation 100% 07/04/2025 2:12 PM EDT Inhaled Oxygen Concentration - - Weight 70.3 kg (155 lb) 07/04/2025 2:12 PM EDT Height 175.3 cm (5' 9 ) 07/04/2025 2:12 PM EDT Body Mass Index 22.89 07/04/2025 2:12 PM EDT Plan of Treatment Upcoming Encounters Date Type Department Care Team (Late st Contact Info) Description 08/09/2025 9:30 AM EDT Office Visit [facility] [address] [place] [address] Lydia Tello MD [address] [place] [address] Health Maintenance Due Date Last Done Comments Depression Screening 1996 HIV Screening 1996 SDOH Screening 1996 Disability Screening 1996 Alcohol/Substance Use Screening 2008 HPV Vaccines (1 - 3-dose series) 2011 Hepatitis C Screening 2014 DTaP/Tdap/Td Vaccines (1 - Tdap) 2015 Hepatitis B Vaccines (1 of 3 - 19+ 3-dose series) 2015 COVID-19 Vaccine (3 - 2024-2 6 season) 2025 04/07/2023, 11/11/2021 Influenza Vaccine (#1) 2025 Family Planning (PISQ) 07/04/2026 07/04/2025 Tobacco Screening 07/04/2026 07/04/2025 Zoster Vaccines (1 of 2) 2046 RSV Patients and Patients Aged 60 years or older (1 - 1-dose 75+ series) 2071 HIB Vaccines Aged Out No longer eligi ble based on patient's age to complete this topic Hepatitis A Vaccines Aged Out No long er eligible based on patient's age to complete this topic IPV Vaccines Aged Out No longer eligi ble based on patient's age to complete this topic Meningococcal B Vaccine Aged Out No l onger eligible based on patient's age to complete this topic Meningococcal Vaccine Aged Out No gopal kolton eligible based on patient's age to complete this topic Pneumococcal Vaccine: Pediatrics (0 to 5 Years) and At-Risk Patients (6 to 49) Years Aged Out No longer eligible b ased on patient's age to complete this topic RSV under 20 months Aged Out No longe r eligible based on patient's age to complete this topic Rotavirus Vaccines Aged Out No longer eligible based on patient's age to complete this topic Procedures Procedure Name Priority Date/Time Associated Diagnosis Comments ETHANOL Routine 07/16/2025 8:51 PM EDT COMPREHENSIVE METABOLIC PANEL Routine 07/16/2025 8:51 PM EDT DRUG MONITOR, PANEL 1, SCREEN, URINE Routine 07/16/2025 8:51 PM EDT CBC WITH AUTO DIFFERENTIAL Routine 07/16/2025 8:51 PM EDT from Last 3 Months Results * Ethanol (07/16/2025 8:51 PM EDT) ETHANOL (MG/DL) IN SER/PLAS <10 mg/dL [facility] Comment:Serum/plasma ethanol results are to be used formedical/treatment purposes only. 07/16/2025 8:51 PM EDT 07/16/2025 8:57 PM EDT us Generic External Data Provider LAB BLOOD ORDERAB LES Final Result [facility] [address] [place] [address] [phone] * Drug Monitoring, Panel 1, Screen, Urine (07/16/2025 8:51 PM EDT) Opiate Screen Urine Not Detected Not Detect [facility] Comment:Opiate cut-off is 30 0 ng/mL.Positive results are unconfirmed and should not be used fornon-medical purposes. Barbiturates, Urine Not Detected Not Detect [facility] Comment:Barbiturate cut-off is 200 ng/mL.Positive results are unconfirmed and should not be used fornon-medical purposes. Phencyclidine Screen Urine Not Detected Not Detect [facility] Comment:Phencyclidine cut-of f is 25 ng/mL.Positive results are unconfirmed and should not be used fornon-medical purposes. Amphetamine Screen Urine Not Detected Not Detect [facility] Comment:Amphetamine cut-off is 1000 ng/mL.Positive results are unconfirmed and should not be used fornon-medical purposes. Benzodiazepines Screen Urine Not Detected Not Detect [facility] Comment:Benzodiazepine cut-o ff is 200 ng/mL.Positive results are unconfirmed and should not be used fornon-medical purposes. Cocaine Screen Urine Not Detected Not Detect [facility] Comment:Cocaine cut-off is 3 00 ng/mL.Positive results are unconfirmed and should not be used fornon-medical purposes. Cannabinoid Screen Urine Not Detected Not Detect [facility] Comment:Cannabinoid cut-off is 50 ng/mL.Positive results are unconfirmed and should not be used fornon-medical purposes. Methadone Screen, Urine Not Detected Not Detect ng/mL [facility] Comment:Methadone cut-off is 300 ng/mL.Positive results are unconfirmed and should not be used fornon-medical purposes. FENTANYL URINE Not Detected Not Detect [facility] Comment:Fentanyl cut-off is 1 ng/mL.Positive results are unconfirmed and should not be used fornon-medical purposes. Oxycodone Urine Screen Not Detected Not Detect ng/mL [facility] Comment:Oxycodone cut-off is 100 ng/mL.Positive results are unconfirmed and should not be used fornon-medical purposes. Buprenorphine Screen Not Detected Not Detect ng/mL [facility] Comment:Buprenorphine cut-of f is 5 ng/mL.Positive results are unconfirmed and should not be used fornon-medical purposes. 07/16/2025 8:51 PM EDT 07/16/2025 8:57 PM EDT us Generic External Data Provider LAB URINE ORDERAB LES Final Result [facility] [address] [place] [phone] * (ABNORMAL) CBC auto differential (07/16/2025 8:51 PM EDT) White Blood Count 3.9(L) 4.8 - 10.8 X10*3/uL [facility] Red Blood Count 4.84 4.60 - 5.80 X10*6/uL [facility] Hemoglobin 15.5 14.0 - 18.0 g/dl [facility] Hematocrit 43.0 42.0 - 52.0 % [facility] Mean Corpuscular Volume 88.8 80.0 - 98.0 fL [facility] Mean Corpuscular Hemoglobin 32.0 27.0 - 33.0 pg [facility] Mean Corpuscular HGB Conc 36.0 31.0 - 36.0 g/dl [facility] Red Cell Distribution Width 12.1 11.0 - 16.0 % [facility] Platelet Count 133(L) 160 - 400 X10*3/uL [facility] Mean Platelet Volume 11.8 9.4 - 12.4 fL [facility] Neutrophils Percent Auto 65.3 45 - 73 % [facility] Imm Gran Pct Auto 0.0 0.0 - 0.4 % [facility] Lymphocytes Percent Auto 23.1 20 - 40 % [facility] Monocytes Percent Auto 10.8 2 - 11 % [facility] Eosinophils Percent Auto 0.5 0 - 4 % [facility] Basophils Percent Auto 0.3 0 - 2 % [facility] NRBC Pct Auto 0.0 0.0 - 0.2 /100WBC [facility] Neutrophils Absolute Auto 2.5 2.0 - 8.3 x10*3/uL [facility] Imm Gran Abs Auto 0.00 0.00 - 0.03 X10*3/uL [facility] Lymphocytes Absolute Auto 0.9(L) 1.2 - 4.9 X10*3/uL [facility] Monocytes Absolute Auto 0.4 0.1 - 1.2 X10*3/uL [facility] Eosinophils Absolute Auto 0.0 0.0 - 0.4 X10*3/uL [facility] Basophils Absolute Auto 0.0 0.0 - 0.2 X10*3/uL [facility] NRBC Abs Auto 0.000 0.0 - 0.012 X10*3/uL [facility] 07/16/2025 8:51 PM EDT 07/16/2025 8:57 PM EDT us Generic External Data Provider LAB BLOOD ORDERAB LES Final Result [facility] [address] [place] [phone] * (ABNORMAL) Comprehensive Metabolic Panel (07/16/2025 8:51 PM EDT) Sodium 141 135 - 145 mmol/L [facility] Potassium 4.1 3.3 - 5.1 mmol/L [facility] Chloride 106 96 - 108 mmol/L [facility] Carbon Dioxide 27 22 - 29 mmol/L [facility] Anion Gap 12 12 - 20 [facility] Urea Nitrogen (BUN) 18(H) 9 - 16 mg/dL [facility] Creatinine, Serum 1.23 0.5 - 1.4 mg/dL [facility] Creatinine Clr Calc Pharmacy 89.4 [facility] Comment:eGFR (calculated fro m the MDRD study equation) and eCrCl(calculated from the Cockcroft-Gault equation) are based ondifferent parameters and may not yield comparable results.If eCrCl result is absurd, please check patient'sheight/weight. Estimated Glomerular Filt Rate >60 [facility] Comment:Chronic Kidney Disea se: Estimated GFR < 60 mL/min/[id number] Kidney Disease: Estimated GFR < 15 mL/min/1.73m2 Glucose 96 60 - 115 mg/dL [facility] Calcium 9.5 8.4 - 10.2 mg/dL [facility] Bilirubin, Total 0.9 0.0 - 1.0 mg/dL [facility] Aspartate Amino Transferase 25 5 - 37 U/L [facility] Alanine Aminotransferase 17 0 - 40 U/L [facility] Total Protein 7.2 6.5 - 8.0 g/dL [facility] Albumin Level 4.6 3.5 - 5.0 g/dL [facility] Alkaline Phosphatase 52 39 - 117 U/L [facility] 07/16/2025 8:51 PM EDT 07/16/2025 8:57 PM EDT us Generic External Data Provider LAB BLOOD ORDERAB LES Final Result Performing Organization Address City/State/[facility] Co de Phone Number [facility] [address] [place] [phone] from Last 3 Months Insurance [employer] [facility] Care Teams Fresh Food Manager Relationship Specialty Start Date End Date Bergen, MD Lydia [address] [place] [phone] PCP - General Family Medicine 07/04/25
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
[2025-07-17 06:27] VITALS: BP 112/60; PULSE 55; RESP 16; TEMP 36.3; O2SAT 100
--- NOTE | 2025-07-17 08:14 | ECG_ITS ---
Test Reason : PISD Blood Pressure : */* mmHG Vent. Rate : 57 BPM Atrial Rate : 57 BPM P-R Int : 150 ms QRS Dur : 94 ms QT Int : 408 ms P-R-T Axes : 46 89 57 degrees QTcB Int : [address] elevation, consider early repolarization Borderline ECG When compared with ECG of 17-Jul-2022 02:39, No significant change was found Referred By: Erickson Worthington Electronically Signed By: HERNAN GALDAMEZ
--- NOTE | 2025-07-17 08:26 | PC.NURSE ---
Assumed care, report received. Pt is currently sleeping, he is brought breakfast. safety is maintained.
[2025-07-17 12:23] LABS: Appearance Urine Cloudy; Glucose Urine UA Negative (Negative); PH 6.0 (5.0-9.0); Specific Gravity - Urine >= 1.030 (1.005-1.025); UMIC TRIGGER UA YES
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
[2025-07-17 18:44] VITALS: BP 133/69; PULSE 88; RESP 16; TEMP 36.4; O2SAT 99; BMI 24.7
[2025-07-18 08:00] VITALS: BP 125/68; PULSE 78; RESP 18; TEMP 37; O2SAT 96
[2025-07-18 08:28] LABS: Hemoglobin A1C 133.0588 umol/L; Total Hemoglobin (HGBA1C) 4056.9316 umol/L
[2025-07-18 08:33] LABS: Alanine Aminotransferase 18 U/L (0-40); Albumin Level 5.0 g/dL (3.5-5.0); Alkaline Phosphatase 53 U/L (39-117); Anion Gap 12 (12-20); Aspartate Amino Transferase 23 U/L (5-37); Blood Urea Nitrogen 19 mg/dL (9-16); Calcium 10.0 mg/dL (8.4-10.2); Carbon Dioxide 29 mmol/L (22-29); Chloride 104 mmol/L (96-108); Cholesterol 219 mg/dL (<200); Creatinine Clr Calc Pharmacy 91.6; Estimated Glomerular Filt Rate > 60; HDL Cholesterol 40 mg/dL (>40); Magnesium 1.9 mg/dL (1.6-2.6); Potassium 4.0 mmol/L (3.3-5.1); Sodium 141 mmol/L (135-145); Total Protein 7.7 g/dL (6.5-8.0); Triglycerides 54 mg/dL (<150)
[2025-07-18 08:48] LABS: Free T4 (Free Thyroxine) 1.16 ng/dL (0.71-1.85); Thyroid Stimulating Hormone 1.96 uIU/mL (0.32-4.0)
[2025-07-18 09:04] LABS: Folate 10.6 ng/mL (> or = 4.0); Vitamin B12 482 pg/mL (200-900)
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
[2025-07-18 20:00] VITALS: BP 128/75; PULSE 78; RESP 18; TEMP 36.6; O2SAT 98
[2025-07-18 21:58] VITALS: BP 128/75
[2025-07-19 07:58] VITALS: BP 103/56; PULSE 67; TEMP 36.5; O2SAT 97
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
[2025-07-19 20:00] VITALS: BP 125/70; PULSE 73; RESP 16; TEMP 36.4; O2SAT 97
[2025-07-19 23:01] VITALS: BP 127/67
[2025-07-20 08:00] VITALS: BP 142/71; PULSE 78; RESP 16; TEMP 35.9; O2SAT 97
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
[2025-07-20 19:41] VITALS: BP 112/64; PULSE 83; RESP 16; TEMP 37.5; O2SAT 99
[2025-07-20 22:06] VITALS: BP 130/60
[2025-07-21 08:00] VITALS: BP 109/55; PULSE 73; RESP 19; TEMP 36.4; O2SAT 98
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
[2025-07-21 20:00] VITALS: BP 117/56; PULSE 79; RESP 15; TEMP 36.4; O2SAT 98
[2025-07-22 08:00] VITALS: BP 118/60; PULSE 70; RESP 16; TEMP 35.9; O2SAT 99
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
[2025-07-22 20:00] VITALS: BP 131/61; PULSE 85; RESP 18; TEMP 36.6; O2SAT 97
[2025-07-23 08:00] VITALS: BP 120/61; PULSE 68; RESP 16; TEMP 36.1; O2SAT 100
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
[2025-07-23 20:00] VITALS: BP 127/76; PULSE 79; RESP 20; TEMP 37.3; O2SAT 96
[2025-07-24 08:40] VITALS: BP 119/59; PULSE 67; RESP 16; TEMP 36.9; O2SAT 98
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
== END 2025-07-24 12:30 | disposition other institution (70) | DRG 751 ==
LOC: HO.ED 21:37 → HO.PM5 07-17 12:59
PROVIDERS: Admitting Provider Clinical Nurse Specialist Psychiatric/Mental Health, Adult; Emergency Provider Emergency Medicine; Visit Provider Clinical Nurse Specialist Psychiatric/Mental Health, Adult
DX: F33.9 Major depressive disorder, recurrent, unspecified (principal); F43.10 Post-traumatic stress disorder, unspecified; F94.0 Selective mutism; Z79.899 Other long term (current) drug therapy
CPT/HCPCS: 36415; 80053; 80061; 80307; 81001; 82607; 82746; 83036; 83735; 84439; 84443; 85025; 93005; 99285; S9485

== ENCOUNTER → 2025-07-17 08:14 | Outpatient (BNV) | payer MEDICAID, SELFPAY | PROVIDERS: Admitting Provider Clinical Nurse Specialist Psychiatric/Mental Health, Adult; Emergency Provider Emergency Medicine; Visit Provider Internal Medicine | DX: R00.1 Bradycardia, unspecified (principal) | CPT/HCPCS: 93010 ==

== ENCOUNTER → 2025-07-17 12:26 | Outpatient (BNV) | payer MEDICAID, SELFPAY | PROVIDERS: Admitting Provider Clinical Nurse Specialist Psychiatric/Mental Health, Adult; Emergency Provider Emergency Medicine; Visit Provider Nurse Practitioner Psychiatric/Mental Health | DX: F32.9 Major depressive disorder, single episode, unspecified (principal); F43.10 Post-traumatic stress disorder, unspecified | CPT/HCPCS: 90792; 99232 ==

== ENCOUNTER → 2025-07-17 12:26 | Outpatient (BNV) | payer MEDICAID, SELFPAY | PROVIDERS: Admitting Provider Clinical Nurse Specialist Psychiatric/Mental Health, Adult; Emergency Provider Emergency Medicine; Visit Provider Nurse Practitioner Family | DX: F32.9 Major depressive disorder, single episode, unspecified (principal) | CPT/HCPCS: 99221 ==